=== PATIENT | female | born 1930 | race Caucasian/White ===

== ENCOUNTER 2016-07-08 14:00 | Outpatient (CLI) | payer MEDICARE ==
[~2016-07-08] VITALS: Ht 154.9 cm; Wt 62.1 kg
[2016-07-08 14:12] VITALS: BP_SYST 158; BP_SYST 160; BP_DIAS 74; BP_DIAS 81
[2016-07-08 15:38] LABS: BASOPHILS % (AUTO) 0.4 % (0.0-2.0); EOSINOPHILS # (AUTO) 0.1 /CMM (0.0-0.7); EOSINOPHILS % (AUTO) 0.9 % (0.0-6.0); HEMATOCRIT 37 % (33-45); HEMOGLOBIN 12.2 g/dL (11.5-14.8); LYMPHOCYTES # (AUTO) 2.1 /CMM (0.8-4.8); MEAN CORPUSCULAR HEMOGLOBIN 31 PG (26.0-33.0); MEAN CORPUSCULAR HGB CONC 33 g/dl (31.0-36.0); MEAN CORPUSCULAR VOLUME 93 fL (82-100); MONOCYTES # (AUTO) 1.1 /CMM (0.1-1.30); MONOCYTES % (AUTO) 11.8 % (2.0-12.0); NEUTROPHILS # (AUTO) 6.1 /CMM (1.8-8.9); NEUTROPHILS % (AUTO) 64.9 % (43.0-81.0); PLATELET COUNT (AUTO) 411 /CMM (150-450); RDW COEFFICIENT OF VARIATION 13.4 (11.5-15.0); RED BLOOD CELL COUNT(AUTO) 3.93 MIL/uL (4.0-5.2); WHITE BLOOD COUNT (AUTO) 9.4 K/uL (4.3-11.0)
[2016-07-08 15:48] LABS: CREATININE 1.1 mg/dL (0.6-1.3)
[2016-07-08 16:06] LABS: ALBUMIN 3.7 g/dL (3.4-5.0); BILIRUBIN,DIRECT 0.1 mg/dL (0.0-0.2); BILIRUBIN,TOTAL 0.3 mg/dL (0.2-1.0); TOTAL PROTEIN, SERUM 8.7 g/dL (6.4-8.2)
[2016-07-08] MEDS ORDERED: METO-302 PO (16:16)
[2016-07-08] MEDS ORDERED: LOSA100T15 PO (16:16)
[2016-07-08] MEDS ORDERED: KETO120S2 TP (16:16)
[2016-07-08] MEDS ORDERED: PANT40TA2 PO (16:16)
[2016-07-08] MEDS ORDERED: HYOS0.1283 PO (16:16)
[2016-07-08] MEDS ORDERED: DOXE50CA4 PO (16:16)
[2016-07-08] MEDS ORDERED: LORA2TAB PO (16:16)
[2016-07-08] MEDS ORDERED: NYST5ORA PO (16:16)
[2016-07-08] MEDS ORDERED: ZOLP10TA2 PO (16:16)
[2016-07-08] MEDS ORDERED: MAGN296S PO (16:16)
[2016-07-08] MEDS ORDERED: MELA5TAB PO (16:19)
== END 2016-07-08 23:59 | disposition home or self-care (01) ==
LOC: CSC 14:00
PROVIDERS: ATTEND Internal Medicine
DX: G31.84 Mild cognitive impairment of uncertain or unknown etiology (principal); F51.04 Psychophysiologic insomnia; K58.2 Mixed irritable bowel syndrome; K14.1 Geographic tongue; C88.0 Waldenstrom macroglobulinemia; K11.7 Disturbances of salivary secretion; I10 Essential (primary) hypertension; Z79.899 Other long term (current) drug therapy; Z85.43 Personal history of malignant neoplasm of ovary; Z92.21 Personal history of antineoplastic chemotherapy; Z90.710 Acquired absence of both cervix and uterus; Z90.49 Acquired absence of other specified parts of digestive tract; R01.1 Cardiac murmur, unspecified; K57.90 Diverticulosis of intestine, part unspecified, without perforation or abscess without bleeding; F32.9 Major depressive disorder, single episode, unspecified
CPT/HCPCS: 36415; 80048-TC; 80061-TC; 80076-TC; 82306; 85025-TC; G0463

== ENCOUNTER 2016-07-22 13:52 | Outpatient (CLI) | payer MEDICARE ==
[~2016-07-22] VITALS: Ht 154.9 cm; Wt 60.8 kg
[~2016-07-22 13:52] MED LIST: DOXE50CA4 PO; HYOS0.1283 PO; KETO120S2 TP; LORA2TAB PO; LOSA100T15 PO; MAGN296S PO; MELA5TAB PO; METO-302 PO; NYST5ORA PO; PANT40TA2 PO; ZOLP10TA2 PO
[2016-07-22 14:07] VITALS: BP_SYST 158; BP_SYST 159; BP_DIAS 79; BP_DIAS 85
== END 2016-07-22 23:59 | disposition home or self-care (01) ==
LOC: CSC 13:52
PROVIDERS: ATTEND Internal Medicine
DX: G31.84 Mild cognitive impairment of uncertain or unknown etiology (principal); Z72.89 Other problems related to lifestyle; Z91.81 History of falling; I10 Essential (primary) hypertension; R06.02 Shortness of breath; K11.7 Disturbances of salivary secretion; T44.3X5A Adverse effect of other parasympatholytics [anticholinergics and antimuscarinics] and spasmolytics, initial encounter; T43.95XA Adverse effect of unspecified psychotropic drug, initial encounter; Y92.9 Unspecified place or not applicable; K58.2 Mixed irritable bowel syndrome; K14.1 Geographic tongue; C88.0 Waldenstrom macroglobulinemia; F51.04 Psychophysiologic insomnia; F41.9 Anxiety disorder, unspecified
CPT/HCPCS: G0463